=== PATIENT | male | born 1930 | race Caucasian/White ===

== ENCOUNTER → 2017-03-28 | Outpatient (CLI) | payer MEDICARE, OTHER, MEDICAID ==
[~2017-03-28] MED LIST: ACETAMIN W/CODE1 TAB PO; ACETAMINOPHEN500 M3 PO; ALBUTEROL2.5 MG/NEB INH; ASCORBIC ACID500 M2 PO; BACTRIM DS 8001 TA1 PO; BUPROPION HCL75 MG PO; CALCIUM CARBON600 MG; CALCIUM CARBON650 M1 PO; CLARITIN 10MG T10 MG PO; COUMADIN 10MG T10 MG PO; DEEP SEA NS; DONEPEZIL 10MG10 MG PO; DUONEB 3 MG/3 ML3 ML IH; EFFEXOR XR 75MG75 MG PO; ENULOSE10 GM/15 M PO; FLONASE 50 MCG16 GM; HUMALOG100 U/ML SC; HUMULIN R100 U/ML; IBU-8800 MG PO; IMODIUM 2MG. CAP2 MG PO; INSULIN GL100 UNITS/ SC; IPRATROPIUM 2.2.5 ML INH; LANTUS INS100 UNITS/ SC; LASIX20 MG PO; LEVAQUIN 750 M750 MG PO; LEVAQUIN IV; LEVAQUIN500 MG PO; LEVOFLOXACIN 7750 M1 IV; LISINOPRIL 20MG20 MG PO; LISINOPRIL 5MG T5 MG; LOPERAMIDE2 MG; LORTAB 5/500 501 TAB PO; METOPROLOL25 MG PO; MIRALAX17 GM/DOSE PO; NAMENDA10 M1 FT; NORCO 325 MG-51 TAB PO; PRILOSEC20 MG PO; RISPERDAL 0.50.5 MG PO; RISPERDAL0.5 MG PO; RISPERIDONE0.25 M1 PO; ROBAFEN100 MG/5 M PO; SINGULAIR 10 MG10 MG PO; SYMBICORT 10.10.2 M1 IH; TYLENOL W/CODEI1 TA2 PO; VITAMIN C500 M1 PO; WARFARIN SOD5 MG PO; WARFARIN SODIU7.5 MG PO; XYZAL5 MG PO; ZOFRAN4 MG PO
== END ==
LOC: LAB 09:12
DX: Z79.01 Long term (current) use of anticoagulants (principal); Z51.81 Encounter for therapeutic drug level monitoring

== ENCOUNTER → 2017-04-18 | Outpatient (CLI) | payer MEDICARE, OTHER, MEDICAID | LOC: LAB 09:55 | DX: Z79.01 Long term (current) use of anticoagulants (principal); Z51.81 Encounter for therapeutic drug level monitoring ==